=== PATIENT | female | born 1970 | race Caucasian/White ===

== ENCOUNTER 2018-01-15 08:37 | Emergency (ER) | payer OTHER ==
[2018-01-15 08:37] VITALS: BMI 23.3
[2018-01-15 09:07] VITALS: RESP 18; TEMP 98
[2018-01-15] MEDS ORDERED: Oxycodone/Acetaminophen 5/325 mg Tab PO STA (09:25)
--- NOTE | 2018-01-15 10:00 | ED PDOC ---
Arrival/HPI - General Chief Complaint: Upper Extremity Problem/Injury Time Seen by Provider: 01/15/18 09:24 Historian: Patient - History of Present Illness Narrative History of Present Illness (Text): 01/15/18 09:57 47yo female who present with complaint of sharp right shoulder pain, worse with abduction x 2weeks. Notes that pain started while she was moving boxes. She thought pain will resolve, but it became increasingly worse. Notes that pain is now radiating to her scapular area. States she takes Ibuprofen 800mg without relieve. Denies chest pain, SOB, focal weakness, paresthesia. Past Medical History - Provider Review Nursing Documentation Reviewed: Yes - Past History Past History: No Previous - Infectious Disease Hx of Infectious Diseases: None - Tetanus Immunization Tetanus Immunization: Up to Date - Past Medical History Past Medical History: No Previous - Pulmonary Hx Asthma: Yes - Psychiatric Hx Depression: No Hx Emotional Abuse: No Hx Physical Abuse: No Hx Substance Use: No - Past Surgical History Past Surgical History: No Previous - Suicidal Assessment Feels Threatened In Home Enviroment: No Family/Social History - Physician Review Nursing Documentation Reviewed: Yes Family/Social History: Unknown Family HX Smoking Status: Never Smoked Hx Alcohol Use: No Hx Substance Use: No Hx Substance Use Treatment: No Allergies/Home Meds Allergies/Adverse Reactions: Allergies No Known Allergies Allergy (Verified 01/15/18 09:07) Review of Systems - Physician Review All systems were reviewed & negative as marked: Yes - Review of Systems Constitutional: Normal Eyes: Normal ENT: Normal Respiratory: Normal Cardiovascular: Normal Gastrointestinal: Normal Genitourinary Female: Normal Musculoskeletal: Arthralgias (Right shoulder pain) Skin: Normal Neurological: Normal Endocrine: Normal Hemo/Lymphatic: Normal Psychiatric: Normal Physical Exam Vital Signs Reviewed: Yes Vital Signs Temp Pulse Resp BP Pulse Ox 01/15/18 12:00 69 18 116/65 100 01/15/18 11:18 75 18 114/61 100 01/15/18 09:05 98 F 80 18 112/54 L 98 Temperature: Afebrile Blood Pressure: Normal Pulse: Regular Respiratory Rate: Normal Appearance: Positive for: Well-Appearing, Non-Toxic, Comfortable Pain Distress: None Mental Status: Positive for: Alert and Oriented X 3 - Systems Exam Head: Present: Atraumatic, Normocephalic Pupils: Present: PERRL Extroacular Muscles: Present: EOMI Conjunctiva: Present: Normal Mouth: Present: Moist Mucous Membranes Neck: Present: Normal Range of Motion Respiratory/Chest: Present: Clear to Auscultation, Good Air Exchange. No: Respiratory Distress, Accessory Muscle Use Cardiovascular: Present: Regular Rate and Rhythm, Normal S1, S2. No: Murmurs Abdomen: Present: Normal Bowel Sounds. No: Tenderness, Distention, Peritoneal Signs Back: Present: Paraspinal Tenderness (Right parathoracic tenderness). No: Midline Tenderness, Pain with Leg Raise Upper Extremity: Present: NORMAL PULSES, Tenderness (Right shoulder AC joint), Neurovascularly Intact. No: Cyanosis, Edema, Normal ROM (Decreased on abduction up to 70degree), Swelling, Erythema Lower Extremity: Present: Normal Inspection. No: Edema Neurological: Present: GCS=15, CN II-XII Intact, Speech Normal Skin: Present: Warm, Dry, Normal Color. No: Rashes Psychiatric: Present: Alert, Oriented x 3, Normal Insight, Normal Concentration Medical Decision Making ED Course and Treatment: 01/15/18 11:46 Right shoulder/thoracic xray - Negative for fracture/dislocation Pt's pain improved in ED with medication on re evaluation. She will be DC home with Naprosyn for MS pain and flexeril. Refer to ortho. - RAD Interpretation Radiology Orders: 01/15/18 09:24 SHOULDER RIGHT [RAD] Stat 01/15/18 09:25 DORSAL (THORACIC) SPINE [RAD] Stat - Medication Orders Current Medication Orders: Discontinued Medications Ketorolac Tromethamine (Toradol) 60 mg IM STAT STA Stop: 01/15/18 09:26 Last Admin: 01/15/18 09:50 Dose: 60 mg MAR Pain Assessment Document 01/15/18 09:50 HI (Rec: 01/15/18 09:50 CT [id number]) Pain Reassessment Is this a pain reassessment? No Sleep Is patient sleeping during reassessment? No Presence of Pain Presence of Pain Yes Pain Scale Used Pain Scale Used Numeric Location Left, Right or Bilateral Right Pain Location Body Site Shoulder Description Intensity of Pain at present 9 IM Administration Charges Document 01/15/18 09:50 HI (Rec: 01/15/18 09:50 CT [id number]) Charges for Administration # of IM Administrations 1 Oxycodone/Acetaminophen (Percocet 5/325 Mg Tab) 1 tab PO STAT STA Stop: 01/15/18 09:26 Last Admin: 01/15/18 09:50 Dose: 1 tab MAR Pain Assessment Document 01/15/18 09:50 HI (Rec: 01/15/18 09:50 HI [id number]) Pain Reassessment Is this a pain reassessment? No Sleep Is patient sleeping during reassessment? No Presence of Pain Presence of Pain Yes Pain Scale Used Pain Scale Used Numeric Location Left, Right or Bilateral Right Pain Location Body Site Shoulder Description Intensity of Pain at present 9 Disposition/Present on Arrival - Present on Arrival Any Indicators Present on Arrival: No History of DVT/PE: No History of Uncontrolled Diabetes: No Urinary Catheter: No History of Decub. Ulcer: No History Surgical Site Infection Following: None - Disposition Have Diagnosis and Disposition been Completed?: Yes Diagnosis: Shoulder pain, Back pain Disposition: HOME/ ROUTINE Disposition Time: 11:50 Patient Plan: Discharge Condition: STABLE Discharge Instructions (ExitCare): Upper Back Pain (DC), Shoulder Pain (DC) Additional Instructions: Follow up with your doctor/Orthopedist Return to ED for any new or worsening symptoms Prescriptions: Cyclobenzaprine [Cyclobenzaprine HCl] 10 mg PO TID #12 tab Naproxen [Naprosyn] 500 mg PO BID #20 tab Referrals: Yuly Arana MD [Primary Care Provider] - Follow up with primary Chao Castillo DO [Staff Provider] - Follow up with primary Forms: [employer] ([place]ayan)
[2018-01-15 11:18] VITALS: O2SAT 100
--- NOTE | 2018-01-15 11:41 | RAD ---
PROCEDURE: Radiographs of the Right Shoulder HISTORY: shoulder pain COMPARISON: No prior. FINDINGS: BONES: No acute fracture. JOINTS: Unremarkable. SOFT TISSUES: Normal. OTHER FINDINGS: None. IMPRESSION: No demonstrated fracture or dislocation.
--- NOTE | 2018-01-15 11:42 | RAD ---
HISTORY: back pain COMPARISON: Chest radiograph dated 04/10/2012. FINDINGS: BONES: Alignment maintained. No fracture. DISC SPACES: Normal. SOFT TISSUES: Normal. OTHER FINDINGS: Right upper quadrant surgical clips. IMPRESSION: No acute fracture.
[2018-01-15 12:23] VITALS: BP 116/65; PULSE 69
== END 2018-01-15 12:39 | disposition home or self-care (01) ==
LOC: ED 08:37
DX: M25.511 Pain in right shoulder (principal); M54.9 Dorsalgia, unspecified
CPT/HCPCS: 72070; 73030; 96372; 99284; J1885

== ENCOUNTER 2018-12-20 10:04 | Outpatient (CLI) | payer MEDICAID | END 2018-12-20 10:05 | disposition home or self-care (01) | LOC: RAD 10:04 ==